=== PATIENT | male | born 1955 | race Caucasian/White ===

== ENCOUNTER 2021-04-10 08:09 | Inpatient (IN) | payer OTHER ==
[2021-03-31 14:35] LABS: BASOPHILS % (AUTO) 0.5 % (0-1); EOSINOPHILS # (AUTO) 0.2 X10'3 (0-0.9); EOSINOPHILS % (AUTO) 3.6 % (0-6); LYMPHOCYTES # (AUTO) 1.4 X10'3 (1.1-4.8); LYMPHOCYTES % (AUTO) 28.2 % (21-51); MEAN CORPUSCULAR HEMOGLOBIN 32.6 PG (27.0-31.0); MEAN CORPUSCULAR HGB CONC 34.1 g/dL (33.0-36.5); MEAN CORPUSCULAR VOLUME 95.6 FL (78-98); MONOCYTES # (AUTO) 0.5 X10'3 (0-0.9); MONOCYTES % (AUTO) 10.4 % (2-12); NEUTROPHILS # (AUTO) 2.8 X10'3 (1.8-7.7); NEUTROPHILS % (AUTO) 57.3 % (42-75); PRE OP HEMATOCRIT 38.9 % (42.0-52.0); PRE OP HEMOGLOBIN 13.3 g/dL (14.0-17.9); PRE OP PLATELET COUNT 219 X10'3 (140-440); RED BLOOD COUNT 4.08 X10'6 (4.70-6.10)
[2021-03-31 14:46] LABS: ALBUMIN 4.1 G/DL (3.4-5.0); ALKALINE PHOSPHATASE 102 IU/L (46-116); BLOOD UREA NITROGEN 13 MG/DL (7-18); BUN/CREATININE RATIO 12.5 (5.4-32.0); CALCIUM 8.8 MG/DL (8.5-10.1); CHLORIDE 107 MMOL/L (99-107); CREATININE 1.04 MG/DL (0.60-1.10); PRE OP ALT 42 U/L (30-65); PRE OP ANION GAP 11 (8-16); PRE OP AST 37 U/L (10-37); PRE OP BILIRUB, TOTAL 0.4 MG/DL (0.0-1.0); PRE OP GLUCOSE 90 MG/DL (70-104); PRE OP POTASSIUM 4.4 MMOL/L (3.4-5.1); PRE OP SODIUM 142 MMOL/L (135-145); TOTAL CARBON DIOXIDE 24.4 MMOL/L (24-32); TOTAL PROTEIN 8.1 G/DL (6.4-8.2); eGFR 72 ML/MIN
[~2021-04-10] VITALS: Ht 175.3 cm; Wt 130.0 kg
[2021-04-10] VITALS (21 sets, daily range): BP systolic 119–139; BP diastolic 52–100
[~2021-04-10 08:09] MED LIST: ASPI-611 PO; ATOR20TA10 PO; ceFAZolin inj. 3,000 MG in normal saline 100ml IV soln 100 ML IV ONE; famotidine 20mg tablet PO ONE; ringers solution, lacted 1,000 ML IV SCH; tranexamic acid 650mg tablet PO ONE; vancomycin 1,500 MG in NS 300ml IV soln IV ONE
[2021-04-10] MEDS ORDERED: ROPIVAcaine 0.5% (5mg/ml) 30ml vial ONE ×2 (11:16→11:55)
[2021-04-10] MEDS ORDERED: ketorolac trometh. 30mg/ml inj. ONE (11:50)
[2021-04-10] MEDS ORDERED: fentaNYL/PF 50MCG/1 ML 2ML syringe ONE (11:55)
[2021-04-10] MEDS ORDERED: MIDAZolam 1 MG/ML 5ML VIAL ONE (11:55)
[2021-04-10] MEDS ORDERED: propofol inj 20 ML IV ONE (11:55)
[2021-04-10] MEDS ORDERED: sevoflurane 250ml liquid IH ONE (11:56)
[2021-04-10] MEDS ORDERED: meperidine/PF 25mg/ml syringe IV PRN ×3 (12:45)
[2021-04-10] MEDS ORDERED: morphine 2 MG/ML inj. syringe IV PRN (12:45)
[2021-04-10] MEDS ORDERED: ROPIVAcaine 0.2%/PF PUMP/bolus 545 ML INTERSCALE SCH (12:45)
[2021-04-10] MEDS ORDERED: ondansetron/PF 4mg/2ml inj IV PRN ×2 (12:45→14:25)
[2021-04-10] MEDS ORDERED: ROPIVAcaine 0.2% (10 MG/5 ML) BOLUS INJECTION INTERSCALE PRN (12:45)
[2021-04-10] MEDS ORDERED: morphine 4 MG/ML inj SYRINge IV PRN (12:45)
[2021-04-10] MEDS ORDERED: proCHLORperazine 10 MG/2 ml inj IV PRN (12:45)
[2021-04-10] MEDS ORDERED: ringers solution, lacted 1,000 ML IV SCH (12:45)
[2021-04-10] MEDS ORDERED: ePHEDrine 50MG/ML INJ. ONE (13:05)
[2021-04-10] MEDS ORDERED: HYDROmorphone inj. 0.5 MG/0.5 ML DISP.SYRIN IV PRN (14:25)
[2021-04-10] MEDS ORDERED: acetaminophen 325mg tablet PO PRN (14:25)
[2021-04-10] MEDS ORDERED: magnesium hydroxide 30ml (MOM) UD suspension PO PRN (14:25)
[2021-04-10] MEDS ORDERED: HYDROmorphone 1 mg/ml syringe IV PRN (14:25)
[2021-04-10] MEDS ORDERED: diphenhydrAMINE 25mg capsule PO PRN ×2 (14:25)
[2021-04-10] MEDS ORDERED: bisacodyl 10mg suppository rectal RC PRN (14:25)
[2021-04-10] MEDS ORDERED: oxyCODONE IR 5mg (immed. release) tablet PO PRN ×2 (14:25)
--- NOTE | 2021-04-10 14:31 | NUR ---
Received from OR via bed, accompanied by Anesthesiologist Dr. Garcia and report given by Anesthesiolgist and OR nurse. Pt arrived with LMA and face mask at 10 L and was very drowsy. No s/s of distress or discomfort. Right shoulder wrapped with dressing c/d/i. Ice applied. LMA removed 2 min. after arrival. No distress noted. Addendum: 04/10/21 at 1508 by Charlene Mariscal RN Amended: Links added.
--- NOTE | 2021-04-10 15:44 | NUR ---
Patient in room PAS IN 901. I have received report from Charlene HENRIQUEZ and had the opportunity to ask questions and assume patient care.
--- NOTE | 2021-04-10 15:57 | NUR ---
PACU D/C CRITERIA MET, REPORT GIVEN TO FLORENCE BRIDGES. DENIES PAIN OR DISCOMFORT. PT IS STABLE AND ADEQUATELY RECOVERED FROM ANESTHESIA. PT HAS STABLE AIRWAY. VITALS STABLE AND HYDRATION ADEQUATE. MENTAL STATUS IS APPROPRIATE. DENIES PAIN AND NAUSEA. PT TRANSFERRED VIA BED TO ROOM 348A. NO BELONGINGS. NOTIFIED. BLL, CALL LIGHT GIVEN, RECEIVING RN NOTIFIED OF PT ARRIVAL. Addendum: 04/10/21 at 1630 by Charlene Mariscal RN Amended: Links added.
[2021-04-10] MEDS: potassium cl 20mEq in 1/2 NS 1,000 ML IV SCH (16:55)
[2021-04-10] MEDS: ceFAZolin/D5W- 1GM premix 50 ML IV SCH (17:14)
--- NOTE | 2021-04-10 18:25 | NUR ---
Problems reprioritized. Patient report given, questions answered & plan of care reviewed with Adis HENRIQUEZ.
--- NOTE | 2021-04-10 19:11 | NUR ---
Patient in room [facility] 348. I have received report from Gerardo HENRIQUEZ and had the opportunity to ask questions and assume patient care.
[2021-04-10] MEDS ORDERED: vancomycin/NS 1 GM ADD-VANTAGE 250 ML IV SCH (20:00)
[2021-04-10] MEDS: acetaminophen 325mg tablet PO SCH (20:08)
[2021-04-10] MEDS: gabapentin 300mg capsule PO SCH (20:08)
[2021-04-10] MEDS ORDERED: sennosides 8.6mg tablet PO SCH (21:00)
[2021-04-11 00:09] VITALS: BP 105/54
[2021-04-11] MEDS: ceFAZolin/D5W- 1GM premix 50 ML IV SCH (00:58)
[2021-04-11] MEDS: acetaminophen 325mg tablet PO SCH ×2 (01:03→08:16)
[2021-04-11] MEDS: potassium cl 20mEq in 1/2 NS 1,000 ML IV SCH ×2 (04:13→06:25)
[2021-04-11 04:31] VITALS: BP 102/56
--- NOTE | 2021-04-11 06:15 | NUR ---
Received report from Gerardo HENRIQUEZ
--- NOTE | 2021-04-11 06:24 | NUR ---
Patient in room [facility] 348. I have received report from Adis HENRIQUEZ and had the opportunity to ask questions and assume patient care.
--- NOTE | 2021-04-11 06:39 | NUR ---
Problems reprioritized. Patient report given, questions answered & plan of care reviewed with Gerardo HENRIQUEZ.
[2021-04-11 06:55] LABS: BASOPHILS % (AUTO) 0.3 % (0-1); EOSINOPHILS # (AUTO) 0.1 X10'3 (0-0.9); EOSINOPHILS % (AUTO) 1.4 % (0-6); HEMATOCRIT 34.2 % (42.0-52.0); HEMOGLOBIN 11.8 g/dl (14.0-17.9); LYMPHOCYTES # (AUTO) 0.8 X10'3 (1.1-4.8); LYMPHOCYTES % (AUTO) 14.5 % (21-51); MEAN CORPUSCULAR HGB CONC 34.4 g/dL (33.0-36.5); MEAN PLATELET VOLUME 8.3 FL (7.4-10.4); MONOCYTES # (AUTO) 0.8 X10'3 (0-0.9); MONOCYTES % (AUTO) 13.8 % (2-12); PLATELET COUNT 188 X10'3 (140-440); RED BLOOD COUNT 3.57 X10'6 (4.70-6.10); RED CELL DISTRIBUTION WIDTH 13.8 % (11.5-14.5); WHITE BLOOD COUNT 5.7 X10'3 (4.5-11.0)
[2021-04-11 07:00] VITALS: BP 106/64
[2021-04-11 07:26] VITALS: BP 97/58
[2021-04-11 07:28] LABS: ANION GAP 9 (8-16); CHLORIDE 105 MMOL/L (99-107); POTASSIUM 4.8 MMOL/L (3.5-5.1); SODIUM 139 MMOL/L (135-145); TOTAL CARBON DIOXIDE 24.8 MMOL/L (24-32)
[2021-04-11] MEDS ORDERED: aspirin 81mg, enteric-coated 1 TAB TABLET.DR PO SCH (08:00)
[2021-04-11] MEDS ORDERED: atorvastatin 20mg tablet PO SCH (08:00)
[2021-04-11] MEDS: gabapentin 300mg capsule PO SCH (08:14)
[2021-04-11] MEDS ORDERED: aspirin 325mg tablet PO SCH (08:30)
[2021-04-11 11:00] VITALS: BP_SYST 104; BP_SYST 120; BP_DIAS 56; BP_DIAS 67
--- NOTE | 2021-04-11 11:23 | NUR ---
Student Medication Administration: For this medication-pass time frame 9685-0926, all medication were reviewed, administered and documented per hospital policy by Dana Franz. Student documentation:I have reviewed and agree with all interventions, assessments performed and documented by Dana Franz.
--- NOTE | 2021-04-11 11:37 | NUR ---
called dr Bonilla and per he said that pt is good to discharge home and stable.
--- NOTE | 2021-04-11 12:03 | NUR ---
Gave report to Gerardo
--- NOTE | 2021-04-11 13:01 | NUR ---
pt was stable to leave. pt ON Q was full pt barely used it while here. went over pt discharge and DC IV it was intact. Pt left with in a private vehicle. will follow up with dr ngo
--- NOTE | 2021-04-11 15:34 | NUR ---
Joint Surgery consult: Pt/ seen by SAURAV for written/verbal high protein ed w/ RD contact information s/p R shoulder surgery this admit. SAURAV encouraged pt/ to contact dietitian's office if further questions/concerns. Addendum: 04/11/21 at [address] Amended: Links added.
[2021-04-11] MEDS ORDERED: celeCOXIB 100mg capsule PO SCH (20:00)
[2021-04-12] MEDS ORDERED: acetaminophen 325mg tablet PO PRN (14:25)
== END 2021-04-11 12:15 | disposition home or self-care (01) | DRG 483 ==
LOC: PAS IN 08:09 → UNDOADMIN 08:09 → PAS IN 14:26 → SUR 3N 16:05
PROVIDERS: ADMIT Orthopaedic Surgery; ATTEND Orthopaedic Surgery
PROC: 0LS30ZZ Reposition Right Upper Arm Tendon, Open Approach (ICD-10-PCS; 2021-04-10)
PROC: 3E0T3BZ Introduction of Anesthetic Agent into Peripheral Nerves and Plexi, Percutaneous Approach (ICD-10-PCS; 2021-04-10)
PROC: 0RRJ0JZ Replacement of Right Shoulder Joint with Synthetic Substitute, Open Approach (ICD-10-PCS; principal; 2021-04-10 11:56)
DX: M19.011 Primary osteoarthritis, right shoulder (principal); D62 Acute posthemorrhagic anemia; G89.29 Other chronic pain; M65.811 Other synovitis and tenosynovitis, right shoulder; M75.21 Bicipital tendinitis, right shoulder; Z79.899 Other long term (current) drug therapy; Z79.82 Long term (current) use of aspirin
CPT/HCPCS: 36415; 80051; 80053; 82948; 85025; 87081; 97110; 97161; 97530; G0378; J0690; J1885; J2250; J2704; J2795; J3010; J3370; J3480; J7040; J7120; U0003; U0005